=== PATIENT | female | born 1995 | race Asian ===

== ENCOUNTER 2021-04-02 20:57 | Emergency (ER) | payer OTHER, SELFPAY ==
[2021-04-02 21:09] VITALS: BP 134/61; PULSE 78; RESP 18; TEMP 36.6; O2SAT 97; BMI 29.2
[2021-04-02] MEDS: ONDANSETRON 4 MG ODT SL (21:16)
--- NOTE | 2021-04-02 22:15 | ED.NAVMDI ---
HPI - Nausea/Vomiting/Diarrhea General Chief complaint: Nausea/Vomiting/Diarrhea Stated complaint: NAUSEA HEADACHE HURTBURN 6 WKS Time Seen by Provider: 04/02/21 22:02 Source: patient Mode of arrival: Ambulatory History of Present Illness HPI Narrative: Patient is . Six weeks . Schedule to have 1st OB appointment. Is on vitamins. Complains of 1 week of nausea and vomiting and urinary frequency. Denies abdominal pain. No fever chills. No back or flank pain. Feels much better after Zofran ODT given here. Currently feeling much better. Related Data Previous Rx's Medication Instructions Recorded cephalexin 500 mg capsule 500 mg PO QID #20 cap 04/02/21 ondansetron 4 mg disintegrating 4 mg PO Q8H PRN #10 tab 04/02/21 tablet Allergies Allergy/AdvReac Type Severity Reaction Status Date / Time No Known Drug Allergies Allergy Verified 04/02/21 22:48 Review of Systems Review of Systems Narrative: GENERAL: Denies chills, fatigue, malaise, fever, sweats. HEENT: Denies sinus pain, ear pain, sore throat RESPIRATORY: Denies dyspnea, cough CARDIOVASCULAR: Denies chest pain, palpitations GASTROINTESTINAL: Complaint nausea, vomiting, denies abdominal pain : Denies dysuria, complains frequency, denies hematuria MUSCULOSKELETAL: denies muscle or bony pain SKIN: Denies rash, skin lesions NEUROLOGIC: Denies weakness, numbness ROS Unobtainable: All systems reviewed & are unremarkable except as noted in HPI and below Patient History Social History Smoking Status: Never smoker Smoking Status: Never smoker alcohol intake frequency: 0-2 drinks per day Substance Use Type: does not use Exam Narrative Exam Narrative: GENERAL: in no distress, not toxic not dyspneic HEAD: Normocephalic. EYES: Pupils equal round No scleral icterus. No injection no discharge ENT: Mucous membranes moist. NECK: Trachea midline. CARDIOVASCULAR: Regular rate and rhythm without murmurs RESPIRATORY: Clear to auscultation. Breath sounds equal bilaterally. No wheezes, rales, or rhonchi. GASTROINTESTINAL: Abdomen soft, non-tender, bowel sounds present no peritoneal signs EXTREMITIES: No gross deformities. BACK: No flank tenderness. No CVA tenderness NEURO: AOx4. SKIN: Warm and dry PSYCH: Not anxious, is cooperative Initial Vital Signs Initial Vital Signs: Vital Signs Temperature 97.8 F 04/02/21 21:09 Pulse Rate 78 04/02/21 21:09 Respiratory Rate 18 04/02/21 21:09 Blood Pressure 134/61 04/02/21 21:09 Pulse Oximetry 97 04/02/21 21:09 Course Course Course Narrative: Feeling much better after Zofran and IV fluids. Orders Ordered: ED Orders 04/02/21 22:00 Urine Culture Stat Urine Microscopic Stat 04/02/21 22:34 Complete Blood Count AUTO DIFF Stat Comprehensive Metabolic Panel Stat Discontinued Medications Cephalexin HCl (Cephalexin 250 Mg Capsule) 500 mg PO NOW ONE Stop: 04/02/21 22:16 Last Admin: 04/02/21 22:50 Dose: 500 mg Documented by: JANETTE Sodium Chloride (Normal Saline 0.9%) 1,000 mls @ 1,000 mls/hr IV BOLUS ONE Stop: 04/02/21 23:13 Last Infusion: 04/03/21 00:04 Dose: 0 mls/hr Documented by: Admin: 04/02/21 22:49 Dose: 1,000 mls/hr Documented by: JANETTE Ondansetron HCl (Ondansetron 4 Mg Odt) 4 mg SL NOW ONE Stop: 04/02/21 21:12 Last Admin: 04/02/21 21:16 Dose: 4 mg Documented by: SCOTT Ondansetron HCl (Ondansetron 4 Mg Odt Prepack) 1 bottle MISC SEEINSTR ONE Stop: 04/02/21 23:43 Last Admin: 04/02/21 23:53 Dose: 1 bottle Documented by: SCOTT Reevaluation(s) Reevaluation #1: Patient feeling much better. IV fluids completed. Zofran resolved the nausea and vomiting. Reviewed results with patient. Desires discharge home Time: 23:38 Vital Signs Vital signs: Vital Signs - 8 hr 04/02/21 21:09 04/03/21 00:05 Temperature 97.8 F Pulse Rate 78 76 Respiratory Rate 18 16 Blood Pressure 134/61 99/49 L Pulse Oximetry 97 99 MDM - Nausea/Vomiting/Diarrhea Differential Diagnosis Differential diagnosis: Likely dehydration and other (UTI/hyperemesis ) Lab Data Result diagrams: 04/02/21 22:34 08/22/21 22:34 Labs: Lab Results 04/02/21 04/02/21 04/02/21 Range/Units 22:00 22:34 22:34 WBC 9.9 (4.5-11.0) X10^3/uL RBC 4.39 (4.0-5.2) X10^6/uL Hgb 13.1 (12.0-16.0) g/dL Hct 38.8 (36-46) % MCV 88.3 (80-100) fL MCH 29.7 (26-34) PG MCHC 33.7 (30-36) % RDW 13.8 (11.6-14.8) % Plt Count 278 (150-400) X10^3/uL Neut % (Auto) 68.1 (50-75) % Lymph % (Auto) 21.2 L (25-40) % [place] % (Auto) 7.7 (3-14) % Eos % (Auto) 2.3 (2-4) % Baso % (Auto) 0.7 (0-2) % Neut # (Auto) 6800 (1218-7488) /uL Lymph # (Auto) 2100 (0942-6858) /uL [place] # (Auto) 800 (0-900) /uL Eos # (Auto) 200 (0-450) /uL Baso # (Auto) 100 (0-100) /uL Sodium 136 L (137-145) mmol/L Potassium 3.8 (3.4-5.1) mmol/L Chloride 105 (98-107) mmol/L Carbon Dioxide 25 (22-32) mmol/L BUN 7 (7-17) mg/dL Creatinine 0.71 (0.52-1.04) mg/dL Estimated GFR > 60.0 (>60) mL/min BUN/Creatinine Ratio 9.9 (6-22) Glucose 85 (70-100) mg/dL Calcium 9.1 (8.4-10.2) mg/dL Total Bilirubin 0.4 (0.2-1.3) mg/dL AST 30 (14-36) IU/L ALT 32 (<35) IU/L Alkaline Phosphatase 48 (38-126) U/L Total Protein 7.5 (6.3-8.2) g/dL Albumin 4.1 (3.5-5.0) g/dL Globulin 3.4 (1.7-4.1) g/dL Albumin/Globulin Ratio 1.2 (1.0-2.8) Urine RBC 0-1/hpf (0-5/HPF) Urine WBC 5-10/hpf H (0-5/HPF) Ur Squamous Epith Cells 1-5 /hpf (0-5/HPF) Ur Transition Epith Cell 1-5/hpf (0-5/HPF) Urine Bacteria Moderate (10-30) H (None) Hyaline Casts 1-5/lpf (None) Ur Culture Indicated? Culture not indicate Urine Dip Bedside Urine Glucose Negative Bedside Urine Bilirubin - Negative Bedside Urine Ketone - Negative Urine Specific [place] 1.010 Bedside Urine Occult Blood - Negative Bedside Urine pH 7 Bedside Urine Protein - Negative Bedside Urine Urobilinogen - Negative Bedside Urine Nitrite - Negative Bedside Urine Leukocytes + 70 Esterase MDM Narrative Medical decision making narrative: Appropriate for discharge home. Symptoms have resolved. Patient feels much better after IV fluids and Zofran. Return precautions reviewed with patient. No abdominal pain or complaints. Laboratory studies reassuring. As well as exam. Patient does have OBGYN appointment next week April 13 for appointment. She desires discharge home. Discharge Plan Departure Patient Disposition: Home Clinical Impression: Nausea and vomiting during , Acute UTI Instructions: DI for Dehydration -- Adult, DI for Urinary Tract Infection (UTI), Nausea and Vomiting-Adult Activity Restrictions/Additional Instructions: See your OBGYN doctor next week as scheduled. Keep well hydrated. Return if worse or any questions or concerns. Prescriptions: New cephalexin 500 mg capsule 500 mg PO QID Qty: 20 RF: 0 ondansetron 4 mg tablet,disintegrating 4 mg PO Q8H PRN (Reason: nausea and vomiting) Qty: 10 RF: 0
[2021-04-02 22:32] LABS: Bacteria Urine Moderate (10-30); Hyaline Casts Urine 1-5/LPF; RBC Urine 0-1/HPF (0-5/HPF); Squamous Epithelial Cell Urine 1-5 /HPF (0-5/HPF); Transitional Epi Cells Urine 1-5/HPF (0-5/HPF); WBC Urine 5-10/HPF (0-5/HPF)
[2021-04-02 22:40] LABS: Add Manual Diff / Slide Review NO; Basophils Absolute Auto 100 /uL (0-100); Basophils Percent Auto 0.7 % (0-2); Eosinophils Absolute Auto 200 /uL (0-450); Eosinophils Percent Auto 2.3 % (2-4); Hematocrit 38.8 % (36-46); Hemoglobin 13.1 g/dL (12.0-16.0); Lymphocytes Absolute Auto 2100 /uL (1100-4500); Lymphocytes Percent Auto 21.2 % (25-40); Mean Corpuscular HGB Conc 33.7 % (30-36); Mean Corpuscular Hemoglobin 29.7 PG (26-34); Mean Corpuscular Volume 88.3 fL (80-100); Monocytes Absolute Auto 800 /uL (0-900); Monocytes Percent Auto 7.7 % (3-14); Neutrophils Absolute Auto 6800 /uL (1500-7000); Neutrophils Percent Auto 68.1 % (50-75); Platelet Count 278 X10^3/uL (150-400); Red Blood Cell Count 4.39 X10^6/uL (4.0-5.2); Red Cell Distribution Width 13.8 % (11.6-14.8); White Blood Cell Count 9.9 X10^3/uL (4.5-11.0)
[2021-04-02] MEDS: SODIUM CHLORIDE 0.9% 1,000 ML 1000 ML IV (22:49)
[2021-04-02] MEDS: cephALEXin 250 MG CAPSULE 500 MG PO (22:50)
[2021-04-02 22:53] LABS: Alanine Aminotransferase 32 IU/L (<35); Albumin 4.1 g/dL (3.5-5.0); Albumin Globulin Ratio 1.2 (1.0-2.8); Alkaline Phosphatase 48 U/L (38-126); Aspartate Aminotransferase 30 IU/L (14-36); BUN Creatinine Ratio 9.9 (6-22); Bilirubin Total 0.4 mg/dL (0.2-1.3); Blood Urea Nitrogen 7 mg/dL (7-17); Calcium 9.1 mg/dL (8.4-10.2); Carbon Dioxide 25 mmol/L (22-32); Chloride 105 mmol/L (98-107); Estimated Glomerular Filt Rate > 60.0 mL/min (>60); Globulin 3.4 g/dL (1.7-4.1); Glucose 85 mg/dL (70-100); HEMOLYSIS < 15 (0-50); Potassium 3.8 mmol/L (3.4-5.1); Sodium 136 mmol/L (137-145); Total Protein 7.5 g/dL (6.3-8.2)
[2021-04-02] MEDS: ONDANSETRON 4 MG ODT PREPACK 1 BOTTLE MISC (23:53)
[2021-04-03 00:05] VITALS: BP 99/49; PULSE 76; RESP 16; O2SAT 99
== END 2021-04-02 23:57 | disposition home or self-care (01) ==
PROVIDERS: Emergency Provider Emergency Medicine
DX: O21.9 Vomiting of pregnancy, unspecified (principal); N39.0 Urinary tract infection, site not specified; Z3A.01 Less than 8 weeks gestation of pregnancy
CPT/HCPCS: 36415; 80053; 81003; 81015; 85025; 87077; 87086; 87186; 96360; 99284

== ENCOUNTER 2021-04-06 01:06 | Emergency (ER) | payer OTHER, SELFPAY ==
[2021-04-06] VITALS (7 sets, daily range): BP systolic 93–108; BP diastolic 52–57; PULSE 57–75; RESP 15; TEMP 36.8; O2SAT 94–100; BMI 28.3
--- NOTE | 2021-04-06 01:34 | DI.US.S_ITS ---
PROCEDURE: US OB <= 14 WEEKS FETUS INDICATIONS: PAIN OUTSIDE/PRIOR DATING DATA: Last menstrual period (LMP): February 15, 2021 LMP-based estimated date of delivery (ERICK): November 22, 2021 First dating scan (date and location): April 06, 2021 Estimated date of delivery (ERICK) from first dating scan: November 23, 2021 TECHNIQUE: Real-time scanning was performed of the fetus and maternal pelvic organs, with image documentation. Endovaginal scanning was also performed to better visualize the fetus and maternal ovaries. COMPARISON: None. FINDINGS: Embryo: Single living intra identified. Yolk sac and pole are identified. [place]-rump length measures 0.9 centimeters corresponding to ultrasound estimated gestational age of 7 weeks 0 days. Heart rate: 124 beats per minute Measurement variability in dating: +/- 4 weeks by LMP, +/- 7 days by mean sac diameter (use before 6 weeks gestation if crown-rump length not able to be measured), +/- 5 days by crown-rump length (up to 8 weeks 6 days gestation), +/- 7 days by crown-rump length (up to 13 weeks 6 days gestation). Maternal organs: Left corpus luteal cyst. 1.0 x 0.6 x 1.5 centimeter echogenic focus noted in the maternal cervical canal. Lesion does not have internal vascularity may represent a small clot. IMPRESSION: Single living intrauterine with ultrasound estimated gestational age of 7 weeks 0 days corresponding to ultrasound ERICK of November 23, 2021. Dictated by: Lizz Alvarez MD, PhD on 04/06/2021 at 8:14 Approved by: Lizz Alvarez MD, PhD on 04/06/2021 at 8:16
--- NOTE | 2021-04-06 01:34 | ED_ITS ---
HPI - Abdominal Pain General Chief Complaint: Abdominal Pain Stated Complaint: nausea vomiting stomach hurts bad Time Seen by Provider: 04/06/21 01:13 Source: patient Mode of arrival: Ambulatory Limitations: no limitations History of Present Illness HPI narrative: Patient is a 25-year-old female 7 weeks presenting with abdominal cramping and nausea. She 54 year pain and vomiting. She was seen evaluated here on 04/02/2021 diagnosed with UTI put on Keflex. She said those symptoms have improved. However pain and vomiting tonight got worse. She denies any fever. No vaginal bleeding. She has been taking Zofran at home for the nausea. She has an appointment with OBGYN but has yet to be evaluated. No prior ultrasound was done. Related Data Previous Rx's Medication Instructions Recorded cephalexin 500 mg capsule 500 mg PO QID #20 cap 04/02/21 ondansetron 4 mg disintegrating 4 mg PO Q8H PRN #10 tab 04/02/21 tablet Allergies Allergy/AdvReac Type Severity Reaction Status Date / Time No Known Drug Allergies Allergy Verified 04/02/21 22:48 Review of Systems Review of Systems Narrative: GENERAL: Denies chills, fatigue, malaise, fever, sweats, travel HEENT: Denies sinus pain, ear pain, sore throat, difficulty swallowing, neck pain RESPIRATORY: Denies dyspnea, cough, wheezing, hemoptysis, sputum. CARDIOVASCULAR: Denies chest pain, palpitations, orthopnea, edema GASTROINTESTINAL: See HPI : Denies dysuria, frequency, incontinence, hematuria, urinary retention, flank pain. MUSCULOSKELETAL: Denies weakness, joint pain, or bony pain SKIN: No rash, no erythema, no pruritus NEUROLOGIC: Denies weakness, dizziness, headache, numbness, change in speech, confusion PSYCHIATRIC: No concerning psychosocial issues. 12 point review of systems is negative except for those stated above and HPI Patient History Social History Smoking Status: Never smoker Smoking Status: Never smoker alcohol intake frequency: 0-2 drinks per day Substance Use Type: does not use Exam Initial Vital Signs Initial Vital Signs: Vital Signs Temperature 98.2 F 04/06/21 01:19 Pulse Rate 57 L 04/06/21 01:19 Respiratory Rate 15 04/06/21 01:19 Blood Pressure 108/57 L 04/06/21 01:19 Pulse Oximetry 99 04/06/21 01:19 GENERAL: 25-year-old female appears to not feel well HEENT: Head atraumatic,EOMI, pupils reactive, face symmetric, moist mucous membranes CARDIOVASCULAR: Regular rate and rhythm without murmurs, rubs or gallops. RESPIRATORY: Breath sounds equal bilaterally, no wheezes rales or rhonchi. ABDOMEN: Soft, mild lower abdominal pain no localization no guarding or rebound EXTREMITIES: Normal range of motion, no clubbing or edema. Neurovascularly intact NEUROLOGICAL: Alert and oriented x4.Normal gait and speech. SKIN: Warm, dry, no laceration, no petechiae, no rashes or lesions. Course Orders Ordered: ED Orders 04/06/21 01:26 Complete Blood Count AUTO DIFF Stat Comprehensive Metabolic Panel Stat HCG Quantitative /Beta subunit Stat Lipase Stat 04/06/21 01:34 US OB <= 14 weeks fetus Stat 04/06/21 01:35 Ictotest Urine Stat Urine Culture Stat Urine Microscopic Stat Discontinued Medications Acetaminophen (Acetaminophen 325 Mg Tablet) 975 mg PO NOW ONE Stop: 04/06/21 01:45 Last Admin: 04/06/21 01:46 Dose: 975 mg Documented by: EUGENIA Sodium Chloride (Normal Saline 0.9%) 1,000 mls @ 1,000 mls/hr IV BOLUS ONE Stop: 04/06/21 02:37 Last Infusion: 04/06/21 02:53 Dose: 0 mls/hr Documented by: Admin: 04/06/21 01:42 Dose: 1,000 mls/hr Documented by: EUGENIA Ondansetron HCl (Ondansetron 4 Mg/2 Ml Inj) 4 mg IV NOW ONE Stop: 04/06/21 01:39 Last Admin: 04/06/21 01:41 Dose: 4 mg Documented by: EUGENIA Vital Signs Vital signs: Vital Signs - 8 hr 04/06/21 01:19 04/06/21 02:55 04/06/21 02:57 Temperature 98.2 F Pulse Rate 57 L 64 70 Respiratory Rate 15 Blood Pressure 108/57 L 105/57 L Pulse Oximetry 99 94 100 04/06/21 03:00 04/06/21 03:30 04/06/21 04:00 Temperature Pulse Rate Respiratory Rate Blood Pressure 103/55 L 94/55 L 93/52 L Pulse Oximetry 04/06/21 04:04 Temperature Pulse Rate 75 Respiratory Rate Blood Pressure Pulse Oximetry 99 MDM - Abdominal Pain Lab Data Result diagrams: 04/06/21 01:04/06/21 01: Labs: Lab Results 04/06/21 04/06/21 04/06/21 Range/Units 01: 01: 01:26 WBC 14.5 H (4.5-11.0) X10^3/uL RBC 4.39 (4.0-5.2) X10^6/uL Hgb 12.8 (12.0-16.0) g/dL Hct 38.6 (36-46) % MCV 88.1 (80-100) fL MCH 29.2 (26-34) PG MCHC 33.1 (30-36) % RDW 13.8 (11.6-14.8) % Plt Count 299 (150-400) X10^3/uL Neut % (Auto) 73.6 (50-75) % Lymph % (Auto) 19.1 L (25-40) % [place] % (Auto) 4.8 (3-14) % Eos % (Auto) 1.9 L (2-4) % Baso % (Auto) 0.6 (0-2) % Neut # (Auto) 89256 H (2444-2788) /uL Lymph # (Auto) 2800 (4074-6054) /uL [place] # (Auto) 700 (0-900) /uL Eos # (Auto) 300 (0-450) /uL Baso # (Auto) 100 (0-100) /uL Sodium 136 L (137-145) mmol/L Potassium 3.4 (3.4-5.1) mmol/L Chloride 102 (98-107) mmol/L Carbon Dioxide 25 (22-32) mmol/L BUN 16 (7-17) mg/dL Creatinine 0.98 (0.52-1.04) mg/dL Estimated GFR > 60.0 (>60) mL/min BUN/Creatinine Ratio 16.3 (6-22) Glucose 112 H (70-100) mg/dL Calcium 9.9 (8.4-10.2) mg/dL Total Bilirubin 0.3 (0.2-1.3) mg/dL AST 30 (14-36) IU/L ALT 32 (<35) IU/L Alkaline Phosphatase 56 (38-126) U/L Total Protein 7.7 (6.3-8.2) g/dL Albumin 4.2 (3.5-5.0) g/dL Globulin 3.5 (1.7-4.1) g/dL Albumin/Globulin Ratio 1.2 (1.0-2.8) Lipase 75 (23-300) U/L HCG, Quant 50959 mIU/mL Ur Bilirubin Confirm (Negative) Urine RBC (0-5/HPF) Urine WBC (0-5/HPF) Ur Squamous Epith Cells (0-5/HPF) Urine Bacteria (None) Urine Mucus (Negative) Ur Culture Indicated? Micro UA Comment 04/06/21 04/06/21 Range/Units 01:35 01:35 WBC (4.5-11.0) X10^3/uL RBC (4.0-5.2) X10^6/uL Hgb (12.0-16.0) g/dL Hct (36-46) % MCV (80-100) fL MCH (26-34) PG MCHC (30-36) % RDW (11.6-14.8) % Plt Count (150-400) X10^3/uL Neut % (Auto) (50-75) % Lymph % (Auto) (25-40) % [place] % (Auto) (3-14) % Eos % (Auto) (2-4) % Baso % (Auto) (0-2) % Neut # (Auto) (7309-0256) /uL Lymph # (Auto) (8970-2716) /uL [place] # (Auto) (0-900) /uL Eos # (Auto) (0-450) /uL Baso # (Auto) (0-100) /uL Sodium (137-145) mmol/L Potassium (3.4-5.1) mmol/L Chloride (98-107) mmol/L Carbon Dioxide (22-32) mmol/L BUN (7-17) mg/dL Creatinine (0.52-1.04) mg/dL Estimated GFR (>60) mL/min BUN/Creatinine Ratio (6-22) Glucose (70-100) mg/dL Calcium (8.4-10.2) mg/dL Total Bilirubin (0.2-1.3) mg/dL AST (14-36) IU/L ALT (<35) IU/L Alkaline Phosphatase (38-126) U/L Total Protein (6.3-8.2) g/dL Albumin (3.5-5.0) g/dL Globulin (1.7-4.1) g/dL Albumin/Globulin Ratio (1.0-2.8) Lipase (23-300) U/L HCG, Quant mIU/mL Ur Bilirubin Confirm Negative (Negative) Urine RBC None seen (0-5/HPF) Urine WBC 0-1/hpf (0-5/HPF) Ur Squamous Epith Cells 0-1 /hpf (0-5/HPF) Urine Bacteria None seen (None) Urine Mucus 1+ H (Negative) Ur Culture Indicated? Culture not indicate Micro UA Comment Point of care testing: Urine Dip Bedside Urine Glucose Negative Bedside Urine Bilirubin + 1 Bedside Urine Ketone - Negative Urine Specific [place] 1.030 Bedside Urine Occult Blood - Negative Bedside Urine pH 6.0 Bedside Urine Protein + 30 Bedside Urine Urobilinogen - Negative Bedside Urine Nitrite - Negative Bedside Urine Leukocytes - Negative Esterase Imaging Data US - OB: Radiologist's Impression: Preliminary report live intrauterine gestation with estimated age is 7 weeks 0 days heart rate 124 MDM Narrative Medical decision making narrative: Patient is tolerating fluid. She was previously on Keflex for UTI seems to be doing better. She has no vaginal bleeding but intense cramping. Recommended repeat HCG in 2 days and to call her OB. Discharge Plan Departure Patient Disposition: Home Clinical Impression: Nausea and vomiting during Instructions: Hyperemesis Gravidarum Activity Restrictions/Additional Instructions: *You have been diagnosed with in with vomiting *What to do: At this time blood work is overall reassuring baby looks healthy. Increase the fluid intake as tolerated. You may take prunes [id number] docusate, to help with constipation. You should have HCG re- checked in 2 days, (HCG=93,365) *Continue to take medications as directed B6 daily for nausea *Follow up with your primary care provider in 2-3 days *Return to ER if you should have increasing abdominal pain, vaginal bleeding, persistent vomiting or any new, worsening or concerning symptoms Prescriptions: No Action cephalexin 500 mg capsule 500 mg PO QID Qty: 20 RF: 0 ondansetron 4 mg tablet,disintegrating 4 mg PO Q8H PRN (Reason: nausea and vomiting) Qty: 10 RF: 0 Referrals: Rosie Rudolph MD [Physician] -
[2021-04-06] MEDS: ONDANSETRON 4 MG/2 ML INJ IV (01:41)
[2021-04-06] MEDS: SODIUM CHLORIDE 0.9% 1,000 ML 1000 ML IV (01:42)
[2021-04-06] MEDS: ACETAMINOPHEN 325 MG TABLET 975 MG PO (01:46)
[2021-04-06 02:07] LABS: Add Manual Diff / Slide Review NO; Basophils Absolute Auto 100 /uL (0-100); Basophils Percent Auto 0.6 % (0-2); Eosinophils Absolute Auto 300 /uL (0-450); Eosinophils Percent Auto 1.9 % (2-4); Hematocrit 38.6 % (36-46); Hemoglobin 12.8 g/dL (12.0-16.0); Lymphocytes Absolute Auto 2800 /uL (1100-4500); Lymphocytes Percent Auto 19.1 % (25-40); Mean Corpuscular HGB Conc 33.1 % (30-36); Mean Corpuscular Hemoglobin 29.2 PG (26-34); Mean Corpuscular Volume 88.1 fL (80-100); Monocytes Absolute Auto 700 /uL (0-900); Monocytes Percent Auto 4.8 % (3-14); Neutrophils Absolute Auto 10700 /uL (1500-7000); Neutrophils Percent Auto 73.6 % (50-75); Platelet Count 299 X10^3/uL (150-400); Red Blood Cell Count 4.39 X10^6/uL (4.0-5.2); Red Cell Distribution Width 13.8 % (11.6-14.8); White Blood Cell Count 14.5 X10^3/uL (4.5-11.0)
[2021-04-06 02:09] LABS: Alanine Aminotransferase 32 IU/L (<35); Albumin 4.2 g/dL (3.5-5.0); Albumin Globulin Ratio 1.2 (1.0-2.8); Alkaline Phosphatase 56 U/L (38-126); Aspartate Aminotransferase 30 IU/L (14-36); BUN Creatinine Ratio 16.3 (6-22); Bilirubin Total 0.3 mg/dL (0.2-1.3); Blood Urea Nitrogen 16 mg/dL (7-17); Calcium 9.9 mg/dL (8.4-10.2); Carbon Dioxide 25 mmol/L (22-32); Chloride 102 mmol/L (98-107); Estimated Glomerular Filt Rate > 60.0 mL/min (>60); Globulin 3.5 g/dL (1.7-4.1); Glucose 112 mg/dL (70-100); HEMOLYSIS < 15 (0-50); Lipase 75 U/L (23-300); Potassium 3.4 mmol/L (3.4-5.1); Sodium 136 mmol/L (137-145); Total Protein 7.7 g/dL (6.3-8.2)
[2021-04-06 02:25] LABS: Ictotest Urine Negative (Negative)
[2021-04-06 02:41] LABS: Bacteria Urine None Seen; RBC Urine None Seen (0-5/HPF)
[2021-04-06 02:42] LABS: Mucus Urine 1+ (Negative); Squamous Epithelial Cell Urine 0-1 /HPF (0-5/HPF); WBC Urine 0-1/HPF (0-5/HPF)
[2021-04-06 03:36] LABS: HCG Quantitative /Beta subunit 93365 mIU/mL
== END 2021-04-06 04:10 | disposition home or self-care (01) ==
PROVIDERS: Emergency Provider Emergency Medicine
DX: O21.9 Vomiting of pregnancy, unspecified (principal); Z3A.01 Less than 8 weeks gestation of pregnancy
CPT/HCPCS: 36415; 76801; 76817; 80053; 81003; 81015; 83690; 84702; 85025; 87086; 96361; 96374; 99284; J2405

== ENCOUNTER → 2021-04-13 10:35 | Outpatient (CLI) | payer OTHER, SELFPAY ==
[2021-04-13 11:55] LABS: Add Manual Diff / Slide Review NO; Basophils Absolute Auto 100 /uL (0-100); Basophils Percent Auto 0.8 % (0-2); Eosinophils Absolute Auto 200 /uL (0-450); Eosinophils Percent Auto 2.5 % (2-4); Hematocrit 38.7 % (36-46); Hemoglobin 12.8 g/dL (12.0-16.0); Lymphocytes Absolute Auto 1600 /uL (1100-4500); Lymphocytes Percent Auto 17.4 % (25-40); Mean Corpuscular HGB Conc 33.2 % (30-36); Mean Corpuscular Hemoglobin 29.5 PG (26-34); Mean Corpuscular Volume 88.9 fL (80-100); Monocytes Absolute Auto 500 /uL (0-900); Monocytes Percent Auto 5.1 % (3-14); Neutrophils Absolute Auto 6700 /uL (1500-7000); Neutrophils Percent Auto 74.2 % (50-75); Platelet Count 281 X10^3/uL (150-400); Red Blood Cell Count 4.35 X10^6/uL (4.0-5.2); Red Cell Distribution Width 14.4 % (11.6-14.8); White Blood Cell Count 9.1 X10^3/uL (4.5-11.0)
[2021-04-13 12:41] LABS: Hepatitis B Surface Antigen NEGATIVE s/c (NEGATIVE)
[2021-04-13 12:58] LABS: HIV 1 & 2 Ab/Ag 4th Gen Combo NEGATIVE (NEGATIVE); Hep C Virus Ab w/Reflex Quant NEGATIVE s/c (NEGATIVE)
[2021-04-13 15:57] LABS: Urine N gonorrhoeae NOT DETECTED
[2021-04-13 16:33] LABS: Urine Chlamydia NOT DETECTED
[2021-04-14 09:31] LABS: RPR Screen Non Reactive (Non Reactive); Varicella IgG Antibody <135 index (Immune >165)
== END ==
PROVIDERS: Referring Provider Specialist; Visit Provider Specialist
DX: Z34.01 Encounter for supervision of normal first pregnancy, first trimester (principal); Z3A.08 8 weeks gestation of pregnancy
CPT/HCPCS: 36415; 80055; 86787; 86803; 86850; 86900; 86901; 87389; 87491; 87591

== ENCOUNTER → 2021-04-18 09:01 | Outpatient (CLI) | payer OTHER, SELFPAY ==
[2021-04-18 10:03] LABS: Appearance Urine UA SL CLOUDY; Bilirubin Urine UA NEGATIVE (NEGATIVE); Color Urine UA YELLOW; Glucose Urine UA NEGATIVE (Negative); Ketones Urine UA NEGATIVE (NEGATIVE); Leukocyte Esterase Urine UA 1+ (NEGATIVE); Nitrite Urine UA NEGATIVE (Negative); Occult Blood Urine UA NEGATIVE (Negative); Protein Urine UA NEGATIVE (Negative); Specific Gravity Urine UA 1.015 (1.000-1.035); Urobilinogen Urine UA 0.2 E.U./dL (0.2)
[2021-04-18 10:04] LABS: pH Urine UA 6.5 (4.5-8.0)
[2021-04-18 10:05] LABS: RBC Urine None Seen (0-5/HPF)
[2021-04-18 10:10] LABS: Amorphous Sediment Urine 1+; Bacteria Urine Many (>30); Squamous Epithelial Cell Urine 5-10 /HPF (0-5/HPF); WBC Urine 1-5/HPF (0-5/HPF)
== END ==
PROVIDERS: Referring Provider Specialist; Visit Provider Specialist
DX: Z34.01 Encounter for supervision of normal first pregnancy, first trimester (principal)
CPT/HCPCS: 81003; 81015; 87077; 87086; 87186

== ENCOUNTER 2021-05-18 23:42 | Emergency (ER) | payer OTHER, SELFPAY ==
[2021-05-18 23:50] VITALS: BP 110/64; PULSE 76; RESP 18; TEMP 36.8; O2SAT 99; BMI 31.1
[2021-05-18 23:52] VITALS: BP 110/64; PULSE 67; RESP 17; O2SAT 99
--- NOTE | 2021-05-19 00:04 | ED.HA ---
HPI - Headache General Chief Complaint: Headache Stated Complaint: severe headache, throwing up Time Seen by Provider: 05/18/21 23:50 Mode of arrival: Ambulatory History of Present Illness HPI Narrative: 25-year-old female nonsmoker without chronic medical problems presents with her in the chief complaint of an increasingly severe headache over the course of the day. She states that it is generalized and squeezing, worse with bright lights and loud noise. She denies any neck pain, trauma nor fever or chills. She states it is quite severe and she has developed nausea and vomiting. She denies focal neurologic problems such as blurred vision, numbness, tingling or weakness of her extremities. She is a at 13 weeks and has had no issues with her thus far. She denies any abdominal pain Related Data Home Medications Medication Instructions Recorded Confirmed prenat.vits,kedar,[id number] 1 tab PO DAILY 04/12/21 04/13/21 sertraline 25 mg tablet (Zoloft) 25 mg PO DAILY 04/12/21 04/13/21 Previous Rx's Medication Instructions Recorded cephalexin 500 mg capsule 500 mg PO QID #20 cap 04/02/21 ondansetron 4 mg disintegrating 4 mg PO Q8H PRN #10 tab 04/02/21 tablet Allergies Allergy/AdvReac Type Severity Reaction Status Date / Time lactose Allergy Severe GI upset & Verified 05/11/21 07:53 diarrhea shellfish derived Allergy Mild Hives Verified 05/11/21 07:53 Review of Systems Review of Systems Narrative: GENERAL: Denies chills, fatigue, malaise, fever, sweats. HEENT: Denies sinus pain, ear pain, sore throat, difficulty swallowing, dizziness. RESPIRATORY: Denies dyspnea, cough, wheezing, hemoptysis, sputum. CARDIOVASCULAR: Denies chest pain, palpitations, orthopnea, edema, GASTROINTESTINAL: See HPI : Denies dysuria, frequency, incontinence, hematuria, urinary retention. MUSCULOSKELETAL: denies weakness, joint pain, or bony pain SKIN: Denies rash, skin lesions, or other NEUROLOGIC: See HPI PSYCHIATRIC: No concerning psychosocial issues. 12 point review of systems is negative except for those stated above Patient History Medical History Acne (~2010) ADHD (~2019) Asthma (~1999) Encounter for IUD removal (~02/2021) Lactose intolerance (~1996) Surgical History [place] teeth extracted (~2017) Family History Father Hypertension Hyperlipidemia Asthma Grandfather Hypertension History of heart disease Grandmother Hyperlipidemia Hypertension Grandfather History of heart disease Hypertension Asthma Glaucoma Pacemaker Grandmother Dementia Mother Acute ITP Social History marital status: number of children: 0 household members: spouse lives independently: Yes caregiver/support person: No housing: apartment pets and animals: Yes (3 cats: safe & aware.) education level: college (Some college. 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 ) daily servings fruits/ve-1 caffeine: Yes (1 cup coffee daily.) Type(s) of exercise: walking (Some hiking. ) and swimming (Every morning. ) frequency: daily duration: 30-45 minutes/day Smoking Status: Former smoker alcohol intake frequency: 0-2 drinks per day Substance Use Type: does not use Exam Narrative Exam Narrative: GENERAL: [25 year old patient appears stated age. Well-developed patient, in mild distress. Uncomfortable, sitting in a dark room with a towel covering her eyes HEAD: Atraumatic. Normocephalic. EYES: Pupils equal round and reactive. Extraocular motions intact. No scleral icterus. No injection or drainage. ENT: Nose without bleeding, purulent drainage. Throat without erythema, tonsillar hypertrophy or exudate. Airway patent. NECK: Trachea midline. Non tender, no meningeal sign CARDIOVASCULAR: Regular rate and rhythm without murmurs, gallops, or rubs. RESPIRATORY: Clear to auscultation. Breath sounds equal bilaterally. No wheezes, rales, or rhonchi. GASTROINTESTINAL: Abdomen soft, non-tender, nondistended. EXTREMITIES: No edema or joint tenderness. BACK: Nontender without deformity or crepitance. No flank tenderness. NEURO: AOx3. SKIN: No rash or erythema of visible areas Initial Vital Signs Initial Vital Signs: Vital Signs Temperature 98.3 F 05/18/21 23:50 Pulse Rate 76 05/18/21 23:50 Respiratory Rate 18 05/18/21 23:50 Blood Pressure 110/64 05/18/21 23:50 Pulse Oximetry 99 05/18/21 23:50 Course Orders Ordered: ED Orders 05/19/21 00:23 Complete Blood Count AUTO DIFF Stat Comprehensive Metabolic Panel Stat Discontinued Medications Acetaminophen (Acetaminophen 325 Mg Tablet) 650 mg PO NOW ONE Stop: 05/19/21 01:21 Last Admin: 05/19/21 01:25 Dose: 650 mg Documented by: EUGENIA Sodium Chloride (Normal Saline 0.9%) 1,000 mls @ 1,000 mls/hr IV BOLUS ONE Stop: 05/19/21 01:02 Last Admin: 05/19/21 00:28 Dose: 1,000 mls/hr Documented by: EUGENIA Metoclopramide HCl (Metoclopramide 10 Mg/2 Ml Inj) 10 mg IV NOW ONE Stop: 05/19/21 00:04 Last Admin: 05/19/21 00:28 Dose: 10 mg Documented by: EUGENIA Reevaluation(s) Reevaluation #1: Patient has had a significant although not complete resolution of pain after above-stated medications. She no longer has any nausea whatsoever. Her neurologic exam is very reassuring Vital Signs Vital signs: Vital Signs - 8 hr 05/18/21 23:50 05/18/21 23:52 Temperature 98.3 F Pulse Rate 76 67 Respiratory Rate 18 17 Blood Pressure 110/64 110/64 Pulse Oximetry 99 99 MDM - Headache Lab Data Result diagrams: 05/19/21 00:23 05/19/21 00:23 Labs: Lab Results 05/19/21 05/19/21 Range/Units 00:23 00:23 WBC 11.3 H (4.5-11.0) X10^3/uL RBC 4.21 (4.0-5.2) X10^6/uL Hgb 12.6 (12.0-16.0) g/dL Hct 37.6 (36-46) % MCV 89.3 (80-100) fL MCH 29.8 (26-34) PG MCHC 33.4 (30-36) % RDW 14.4 (11.6-14.8) % Plt Count 266 (150-400) X10^3/uL Neut % (Auto) 77.0 H (50-75) % Lymph % (Auto) 14.5 L (25-40) % [place] % (Auto) 5.9 (3-14) % Eos % (Auto) 2.2 (2-4) % Baso % (Auto) 0.4 (0-2) % Neut # (Auto) 8700 H (1296-0218) /uL Lymph # (Auto) 1600 (9314-6379) /uL [place] # (Auto) 700 (0-900) /uL Eos # (Auto) 300 (0-450) /uL Baso # (Auto) 0 (0-100) /uL Sodium 137 (137-145) mmol/L Potassium 3.5 (3.4-5.1) mmol/L Chloride 103 (98-107) mmol/L Carbon Dioxide 25 (22-32) mmol/L BUN 7 (7-17) mg/dL Creatinine 0.63 (0.52-1.04) mg/dL Estimated GFR > 60.0 (>60) mL/min BUN/Creatinine Ratio 11.1 (6-22) Glucose 82 (70-100) mg/dL Calcium 9.4 (8.4-10.2) mg/dL Total Bilirubin 0.4 (0.2-1.3) mg/dL AST 26 (14-36) IU/L ALT 19 (<35) IU/L Alkaline Phosphatase 55 (38-126) U/L Total Protein 7.9 (6.3-8.2) g/dL Albumin 4.3 (3.5-5.0) g/dL Globulin 3.6 (1.7-4.1) g/dL Albumin/Globulin Ratio 1.2 (1.0-2.8) MDM Narrative Medical decision making narrative: Headache considerations include, but not limited to: Subarachnoid hemorrhage, but unlikely as patient denies sudden onset of pain, not worst of life, or neck pain Meningitis considered, but thought unlikely given lack of Brudzinski's, Kernig's sign, altered mental status or fever Cavernous sinus thrombosis considered, but thought unlikely given exam, tremendous improvement with above therapies HTN Emergency considered, but thought unlikely given normal vitals Other serious diagnoses considered unlikely given lack of red flag findings such as sudden onset, increasing frequency, immunocompromise, systemic signs (fever, chills, stiff neck, or rash), focal neurologic findings, trauma, blood thinners, etc. Discharge Plan Departure Patient Disposition: Home Clinical Impression: Headache Qualifiers: Headache type: unspecified Headache chronicity pattern: acute headache Intractability: not intractable Qualified Code(s): R51.9 - Headache, unspecified Activity Restrictions/Additional Instructions: *You have been diagnosed with [ Headache ]Your physical exam and response to therapies as well as vital signs are very reassuring. *What to do: *Take medications as directed *Follow up with your primary care provider in 2-3 days, call for an appointment. Let them know you were seen in the Emergency Department and that we ask that you be seen in follow up *Return to ER if you should have any new, worsening or concerning symptoms, such as [ fever > 101F, neck pain or stiffness, vomiting, confusion, seizure, focal weakness, vision change, speech deficit or other concerning symptoms ] Prescriptions: No Action prenat.vits,kdear,[id number] Tablet 1 tab PO DAILY RF: 0 sertraline [Zoloft] 25 mg tablet 25 mg PO DAILY RF: 0 cephalexin 500 mg capsule 500 mg PO QID Qty: 20 RF: 0 ondansetron 4 mg tablet,disintegrating 4 mg PO Q8H PRN (Reason: nausea and vomiting) Qty: 10 RF: 0
[2021-05-19] MEDS: SODIUM CHLORIDE 0.9% 1,000 ML 1000 ML IV (00:28)
[2021-05-19] MEDS: METOCLOPRAMIDE 10 MG/2 ML INJ IV (00:28)
[2021-05-19 00:36] LABS: Add Manual Diff / Slide Review NO; Basophils Absolute Auto 0 /uL (0-100); Basophils Percent Auto 0.4 % (0-2); Eosinophils Absolute Auto 300 /uL (0-450); Eosinophils Percent Auto 2.2 % (2-4); Hematocrit 37.6 % (36-46); Hemoglobin 12.6 g/dL (12.0-16.0); Lymphocytes Absolute Auto 1600 /uL (1100-4500); Lymphocytes Percent Auto 14.5 % (25-40); Mean Corpuscular HGB Conc 33.4 % (30-36); Mean Corpuscular Hemoglobin 29.8 PG (26-34); Mean Corpuscular Volume 89.3 fL (80-100); Monocytes Absolute Auto 700 /uL (0-900); Monocytes Percent Auto 5.9 % (3-14); Neutrophils Absolute Auto 8700 /uL (1500-7000); Platelet Count 266 X10^3/uL (150-400); Red Blood Cell Count 4.21 X10^6/uL (4.0-5.2); Red Cell Distribution Width 14.4 % (11.6-14.8); White Blood Cell Count 11.3 X10^3/uL (4.5-11.0)
[2021-05-19 00:55] LABS: Potassium 3.5 mmol/L (3.4-5.1); Sodium 137 mmol/L (137-145)
[2021-05-19 00:56] LABS: Alanine Aminotransferase 19 IU/L (<35); Albumin 4.3 g/dL (3.5-5.0); Albumin Globulin Ratio 1.2 (1.0-2.8); Alkaline Phosphatase 55 U/L (38-126); Aspartate Aminotransferase 26 IU/L (14-36); BUN Creatinine Ratio 11.1 (6-22); Bilirubin Total 0.4 mg/dL (0.2-1.3); Blood Urea Nitrogen 7 mg/dL (7-17); Calcium 9.4 mg/dL (8.4-10.2); Carbon Dioxide 25 mmol/L (22-32); Chloride 103 mmol/L (98-107); Estimated Glomerular Filt Rate > 60.0 mL/min (>60); Globulin 3.6 g/dL (1.7-4.1); Glucose 82 mg/dL (70-100); Total Protein 7.9 g/dL (6.3-8.2)
[2021-05-19] MEDS: ACETAMINOPHEN 325 MG TABLET 650 MG PO (01:25)
[2021-05-19] MEDS: ONDANSETRON 4 MG ODT PREPACK 1 BOTTLE MISC (03:46)
[2021-05-19 03:49] VITALS: BP 113/57; PULSE 76; RESP 18; O2SAT 98
== END 2021-05-19 03:50 | disposition home or self-care (01) ==
PROVIDERS: Emergency Provider Emergency Medicine
DX: R51.9 Headache, unspecified (principal); R11.2 Nausea with vomiting, unspecified
CPT/HCPCS: 36415; 80053; 85025; 96361; 96374; 99284; J2765

== ENCOUNTER → 2021-05-19 15:25 | Outpatient (CLI) | payer OTHER, SELFPAY | PROVIDERS: Visit Provider Specialist | DX: Z34.81 Encounter for supervision of other normal pregnancy, first trimester (principal); R31.9 Hematuria, unspecified; R82.4 Acetonuria; Z3A.13 13 weeks gestation of pregnancy | CPT/HCPCS: 87077; 87086; 87186 ==

== ENCOUNTER → 2021-06-21 10:07 | Outpatient (CLI) | payer OTHER, SELFPAY ==
[2021-06-24 01:14] LABS: AFP, Serum 51.5 ng/mL (.); Calc Gestational Age Ultrasound (.); Estriol, Free 4.98 ng/mL (.); Inhibin A, MoM 1.11 (.); Maternal Ethnicity Other (.); Maternal Weight 169 lbs (.); Number of Fetuses No (.); OSBR Risk 1 IN 5411 (.); Results Report (.); Test Results *Screen Negative* (.); hCG, MoM 1.28 (.); hCG, Serum 34551 mIU/mL (.)
== END ==
PROVIDERS: Referring Provider Specialist; Visit Provider Specialist
DX: Z34.02 Encounter for supervision of normal first pregnancy, second trimester (principal); Z3A.18 18 weeks gestation of pregnancy
CPT/HCPCS: 36415; 82105; 82677; 84702; 86336; 87077; 87086; 87186

== ENCOUNTER → 2021-07-26 09:46 | Outpatient (CLI) | payer OTHER, SELFPAY ==
--- NOTE | 2021-07-26 09:48 | DI.US.S_ITS ---
PROCEDURE: US OB >= 14 WEEKS FETUS INDICATIONS: ANATOMY OUTSIDE/PRIOR DATING DATA: First dating scan (date and location): 04/13/2021. Estimated date of delivery (ERICK) from first dating scan: 11/18/2021. The calculations are made using the ultrasound ERICK of 11/18/2021. TECHNIQUE: Real-time scanning was performed of the fetus, with image documentation and biometric measurements. COMPARISON: [facility], US, US OB >= 14 WEEKS FETUS, 06/21/2021, 9:56. FINDINGS: General: A single living intrauterine gestation is present. Presentation: Breech. Placenta: Placental position is anterior , without previa. Amniotic fluid index: 9.5 cm, normal range is 5-24 cm. heart rate: 144 beats per minute. Maternal cervical canal: 3.8 cm long. Normal lower limit is 2.5 cm. biometrics: Biparietal diameter: 22 weeks 5 days Head circumference: 22 weeks 2 days Abdominal circumference: 22 weeks 3 days Femur length: 22 weeks 4 days Clinically estimated gestational age: 23 weeks 4 days Composite gestational age from present scan: 22 weeks 4 days Estimated weight and percentile: 507 g; 7th percentile Anatomic survey: Neuro: Ventricles are non-dilated at less than 10 mm. Cisterna magna is normal at 3-11 mm. Cerebellum is normal in size and morphology. Nuchal skin fold: Normal at less than 6 mm between 14-21 weeks gestational age. Face: Suboptimally visualized. Spine: Suboptimally visualized. Heart: 4-chambered heart is present, with normal ventricular outflow tracts. Diaphragm: Diaphragm is intact. Stomach: Left-sided stomach is present. Kidneys: No hydronephrosis. Normal is less than 5 mm in 2nd trimester, less than 7 mm in 3rd trimester. Cord: 3-vessel cord has orthotopic insertion. Bladder: Normal in size. Extremities: All 4 extremities identified. IMPRESSION: 1. Single living IUP redemonstrated and interval growth is less than expected with estimated weight at the 7th percentile. Follow-up growth scan is recommended. 2. face and spine suboptimally visualized; otherwise normal anatomy. We strive to produce accurate, complete, and clear reports of imaging services. To assist us in improving patient care, this report was composed using standard report templates and voice recognition software. Therefore, it may contain abnormal punctuation, insertions and/or omissions. Occasional wrong-word or sound-alike substitutions may occur. Though we review the report and make efforts to correct it, we do recommend that the report be read carefully in proper context to recognize any text inaccuracies. Dictated by: Homero JC Interpreted: Solitario Moses MD on 07/26/2021 at 11:11 Transcribed by: LEYLA on 07/26/2021 at 11:14 Approved by: Solitario Moses M.D. on 07/26/2021 at 14:39
== END ==
PROVIDERS: PCP Family Medicine; Referring Provider Specialist; Visit Provider Specialist
DX: Z36.89 Encounter for other specified antenatal screening (principal); Z3A.23 23 weeks gestation of pregnancy
CPT/HCPCS: 76811

== ENCOUNTER → 2021-08-23 13:17 | Outpatient (CLI) | payer OTHER, SELFPAY ==
[2021-08-23 14:57] LABS: Hematocrit 32.5 % (36-46); Hemoglobin 10.9 g/dL (12.0-16.0)
[2021-08-23 15:10] LABS: GTT (PREG) 1 Hour PP 50gm Dose 125 mg/dL (76-139)
== END ==
PROVIDERS: PCP Family Medicine; Referring Provider Specialist; Visit Provider Specialist
DX: Z34.02 Encounter for supervision of normal first pregnancy, second trimester (principal); Z3A.26 26 weeks gestation of pregnancy
CPT/HCPCS: 82950; 85014; 85018

== ENCOUNTER 2021-09-14 16:12 | Outpatient (CLI) | payer OTHER, SELFPAY ==
[2021-09-14 17:30] LABS: Add Manual Diff / Slide Review NO; Basophils Absolute Auto 100 /uL (0-100); Basophils Percent Auto 0.6 % (0-2); Eosinophils Absolute Auto 200 /uL (0-450); Eosinophils Percent Auto 1.6 % (2-4); Hematocrit 30.2 % (36-46); Hemoglobin 10.3 g/dL (12.0-16.0); Lymphocytes Absolute Auto 1300 /uL (1100-4500); Mean Corpuscular HGB Conc 34.2 % (30-36); Mean Corpuscular Hemoglobin 30.3 PG (26-34); Mean Corpuscular Volume 88.8 fL (80-100); Monocytes Absolute Auto 700 /uL (0-900); Monocytes Percent Auto 6.4 % (3-14); Neutrophils Absolute Auto 8500 /uL (1500-7000); Neutrophils Percent Auto 79.4 % (50-75); Platelet Count 240 X10^3/uL (150-400); Red Cell Distribution Width 14.6 % (11.6-14.8); White Blood Cell Count 10.7 X10^3/uL (4.5-11.0)
[2021-09-14 17:36] LABS: Appearance Urine UA CLEAR; Bilirubin Urine UA NEGATIVE (NEGATIVE); Color Urine UA YELLOW; Glucose Urine UA NEGATIVE (Negative); Ketones Urine UA NEGATIVE (NEGATIVE); Leukocyte Esterase Urine UA 1+ (NEGATIVE); Nitrite Urine UA NEGATIVE (Negative); Occult Blood Urine UA NEGATIVE (Negative); Protein Urine UA NEGATIVE (Negative); Urobilinogen Urine UA 0.2 E.U./dL (0.2)
[2021-09-14 17:57] LABS: Bacteria Urine Many (>30); Culture Indicated Urine Cult Not Indicated; RBC Urine 0-1/HPF (0-5/HPF); Squamous Epithelial Cell Urine 5-10 /HPF (0-5/HPF); WBC Urine 1-5/HPF (0-5/HPF)
--- NOTE | 2021-09-14 18:08 | PM.OBTRLD ---
Visit Information Visit Information Date of evaluation: 09/14/21 Primary OB Provider: Rosie Rudolph Reason for Evaluation: Yes pre-term labor [facility] Medical History Acne (~2010) ADHD (~2019) Asthma (~1999) Encounter for IUD removal (~02/2021) Lactose intolerance (~1996) Surgical History [place] teeth extracted (~2017) Family History Father Hypertension Hyperlipidemia Asthma Grandfather Hypertension History of heart disease Grandmother Hyperlipidemia Hypertension Grandfather History of heart disease Hypertension Asthma Glaucoma Pacemaker Grandmother Dementia Mother Acute ITP Social History marital status: number of children: 0 household members: spouse lives independently: Yes caregiver/support person: No housing: apartment pets and animals: Yes (3 cats: safe & aware.) education level: college (Some college. 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 ) daily servings fruits/ve-1 caffeine: Yes (1 cup coffee daily.) Type(s) of exercise: walking (Some hiking. ) and swimming (Every morning. ) frequency: daily duration: 30-45 minutes/day Review of Systems Review of Systems Narrative: Patient complained of tightening and discomfort this morning she began having feeling more like menstrual cramps. No vaginal bleeding. No leakage of fluid. Good movement. Now the patient has come in and laid down and her discomfort has resolved. Exam Narrative Exam Narrative: Patient with some mild right-sided uterine tenderness no firmness or tenderness to the left side. Objective Labs Result Diagrams: 09/14/21 17:21 Labs: Laboratory Results - last 24 hr 09/14/21 09/14/21 17:00 17:21 WBC 10.7 RBC 3.40 L Hgb 10.3 L Hct 30.2 L MCV 88.8 MCH 30.3 MCHC 34.2 RDW 14.6 Plt Count 240 Neut % (Auto) 79.4 H Lymph % (Auto) 12.0 L [place] % (Auto) 6.4 Eos % (Auto) 1.6 L Baso % (Auto) 0.6 Neut # (Auto) 8500 H Lymph # (Auto) 1300 [place] # (Auto) 700 Eos # (Auto) 200 Baso # (Auto) 100 Urine Color Yellow Urine Appearance Clear Urine pH 7.0 Ur Specific [place] 1.010 Urine Protein Negative Urine Glucose (UA) Negative Urine Ketones Negative Urine Occult Blood Negative Urine Nitrate Negative Urine Bilirubin Negative Urine Urobilinogen 0.2 Ur Leukocyte Esterase 1+ H Urine RBC 0-1/hpf Urine WBC 1-5/hpf Ur Squamous Epith Cells 5-10 /hpf H Urine Bacteria Many (>30) H Ur Culture Indicated? Cult not indicated Evaluation Evaluation Baseline heart rate: 130 Variability: Moderate (11-25) monitor accelerations: Present Monitor Decelerations: Absent Contraction Frequency (minutes): 10 Uterine Contraction Intensity: Mild Category of Tracing: Reactive Status: Category l Diagnosis, Plan/Disposition Final Diagnosis (1) False labor before 37 completed weeks of gestation: Status: Acute (2) 30 weeks gestation of : Status: Acute Plan/Disposition Plan: Patient was given a note to be at bedrest. Precautions reviewed. Keep her appointment on 09/21/2021 OB Disposition: home
== END 2021-09-14 18:18 | disposition home or self-care (01) ==
LOC: OB 09-15 09:45
PROVIDERS: PCP Family Medicine; Referring Provider Specialist; Visit Provider Specialist
DX: O47.03 False labor before 37 completed weeks of gestation, third trimester (principal); Z3A.30 30 weeks gestation of pregnancy
CPT/HCPCS: 36415; 59025; 59050; 81003; 81015; 85025; G0378; G0379

== ENCOUNTER → 2021-10-26 13:58 | Outpatient (CLI) | payer OTHER, SELFPAY ==
[2021-10-27 14:24] LABS: Strep Grp B PCR NEG for Grp B Strep
== END ==
PROVIDERS: PCP Family Medicine; Visit Provider Specialist
DX: Z34.03 Encounter for supervision of normal first pregnancy, third trimester (principal); Z3A.36 36 weeks gestation of pregnancy
CPT/HCPCS: 87653

== ENCOUNTER 2021-10-30 16:59 | Observation (INO) | payer OTHER, SELFPAY ==
--- NOTE | 2021-10-30 18:19 | DI.US.S_ITS ---
PROCEDURE: US OB LIMITED INDICATIONS: TRISTAN TECHNIQUE: Real-time scanning was performed of the fetus, with image documentation. Endovaginal scanning: Not performed COMPARISON: None. FINDINGS: A single living intrauterine gestation is present. Presentation: Cephalic. Placenta: Placental position is anterior, without previa. Amniotic fluid index: 16.3 cm, normal range is 5-24 cm. Single deepest vertical pocket is 5.6 cm. heart rate: 143 beats per minute. Maternal cervical canal: Not seen. IMPRESSION: Single live intrauterine gestation. Amniotic fluid index is 16.3 cm. Dictated by: Primo Dwyer M.D. on 10/30/2021 at 18:52 Approved by: Primo Dwyer M.D. on 10/30/2021 at 18:53
--- NOTE | 2021-10-30 19:04 | PM.OBTRLD ---
Visit Information Visit Information Date of evaluation: 10/30/21 Primary OB Provider: Rosie Rudolph On-call OB Provider: Lissa Norman Reason for Evaluation: Yes rule out labor Comments/Additional reasons for admission: 26 year old at 36+5 weeks coming in with regular contractions. She had a single episode of leaking yesterday but it did not continue. She has been sexually active in the last 12 hours. Baby is active. Denies bleeding. Continues have become more regular and pain. She had another episode of leaking while in the center. Vital Signs Vital Signs: Temperature 36.8 BP 120/73 P 96 PFSH Medical History Acne (~2010) ADHD (~2019) Asthma (~1999) Encounter for IUD removal (~02/2021) Lactose intolerance (~1996) Surgical History [place] teeth extracted (~2017) Family History Father Hypertension Hyperlipidemia Asthma Grandfather Hypertension History of heart disease Grandmother Hyperlipidemia Hypertension Grandfather History of heart disease Hypertension Asthma Glaucoma Pacemaker Grandmother Dementia Mother Acute ITP Social History marital status: number of children: 0 household members: spouse lives independently: Yes caregiver/support person: No housing: apartment pets and animals: Yes (3 cats: safe & aware.) education level: college (Some college. 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 ) daily servings fruits/ve-1 caffeine: Yes (1 cup coffee daily.) Type(s) of exercise: walking (Some hiking. ) and swimming (Every morning. ) frequency: daily duration: 30-45 minutes/day Evaluation Evaluation Baseline heart rate: 140 Variability: Moderate (11-25) monitor accelerations: Present Monitor Decelerations: Absent Contraction Frequency (minutes): 6 Uterine Contraction Intensity: Mild Category of Tracing: Reactive Cervical dilation (cm): 0 Cervical effacement (%): 50 station: -1 Comments: Speculum exam performed due to possible rupture of membranes, no pooling of fluid in vagina, physiologic discharge present Diagnosis, Plan/Disposition Plan/Disposition Plan: 26 year old at 36+5 weeks gestation concerned for labor and ROM. SVE FT/50/-1 and unchanged after an hour of monitoring and ctx 6-7 min apart. Amnisure was not completed due to recent intercourse however no pooling in vagina on speculum exam and TRISTAN 16, reassuring against ROM. Suspect discharge was semen. Return precautions reviewed with the patient. Follow up in clinic this week or sooner if needed. OB Disposition: home
== END 2021-10-30 19:40 | disposition home or self-care (01) ==
LOC: LABOR 17:00
PROVIDERS: Admitting Provider Specialist; PCP Family Medicine; Referring Provider Specialist; Visit Provider Specialist
DX: Z03.71 Encounter for suspected problem with amniotic cavity and membrane ruled out (principal); O47.03 False labor before 37 completed weeks of gestation, third trimester; Z3A.36 36 weeks gestation of pregnancy
CPT/HCPCS: 59025; 59050; 76815; G0378; G0379

== ENCOUNTER 2021-11-02 16:17 | Outpatient (CLI) | payer OTHER, SELFPAY ==
--- NOTE | 2021-11-02 17:09 | PM.OBTRLD ---
Visit Information Visit Information Date of evaluation: 11/02/21 Primary OB Provider: Rosie Rudolph Reason for Evaluation: Yes rule out labor [facility] Medical History Acne (~2010) ADHD (~2019) Asthma (~1999) Encounter for IUD removal (~02/2021) Lactose intolerance (~1996) Surgical History [place] teeth extracted (~2017) Family History Father Hypertension Hyperlipidemia Asthma Grandfather Hypertension History of heart disease Grandmother Hyperlipidemia Hypertension Grandfather History of heart disease Hypertension Asthma Glaucoma Pacemaker Grandmother Dementia Mother Acute ITP Social History marital status: number of children: 0 household members: spouse lives independently: Yes caregiver/support person: No housing: apartment pets and animals: Yes (3 cats: safe & aware.) education level: college (Some college. 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 ) daily servings fruits/ve-1 caffeine: Yes (1 cup coffee daily.) Type(s) of exercise: walking (Some hiking. ) and swimming (Every morning. ) frequency: daily duration: 30-45 minutes/day Evaluation Evaluation Baseline heart rate: 140 Variability: Moderate (11-25) monitor accelerations: Present Monitor Decelerations: Absent Contraction Frequency (minutes): 4 Uterine Contraction Intensity: Mild Category of Tracing: Reactive Status: Category l Cervical dilation (cm): 2 Cervical effacement (%): 80 station: -2 Diagnosis, Plan/Disposition Final Diagnosis (1) 37 weeks gestation of : Status: Acute (2) False labor at or after 37 completed weeks of gestation: Status: Acute Plan/Disposition Plan: Patient will be sent home. She declined Demerol IM. Return if contractions continue and worsen, rupture membranes or other concerns. OB Disposition: home
== END 2021-11-02 17:15 | disposition home or self-care (01) ==
LOC: OB 11-05 12:37
PROVIDERS: PCP Family Medicine; Referring Provider Specialist; Visit Provider Specialist
DX: O47.1 False labor at or after 37 completed weeks of gestation (principal); Z3A.37 37 weeks gestation of pregnancy
CPT/HCPCS: 59025; G0378; G0379

== ENCOUNTER 2021-11-04 09:42 | Observation (INO) | payer OTHER, SELFPAY ==
[2021-11-04] MEDS: MEPERIDINE 50 MG/ML INJ IM (10:52)
== END 2021-11-04 12:25 | disposition home or self-care (01) ==
PROVIDERS: Admitting Provider Specialist; PCP Family Medicine; Referring Provider Specialist; Visit Provider Specialist
DX: O75.82 Onset (spontaneous) of labor after 37 completed weeks of gestation but before 39 completed weeks gestation, with delivery by (planned) cesarean section (principal); Z3A.37 37 weeks gestation of pregnancy
CPT/HCPCS: 59025; 59050; 84112; 96372; G0378; G0379; J2175

== ENCOUNTER 2021-11-04 14:35 | Inpatient (IN) | payer OTHER, SELFPAY ==
[2021-11-04 16:12] LABS: COVID19 -Nasal RAPID Negative (Negative)
--- NOTE | 2021-11-04 16:23 | P.HPOB_ITS ---
OB HPI Date/Time Date of admission: 11/04/21 Date Patient Seen: 11/04/21 Time Patient Seen: 16:24 History of Present Condition Chief complaint: LABOR : 1 Para: 0 Estimated Date of Delivery: 11/22/21 Estimated Gestational Age (weeks): 37 Narrative: Radha Peña is a 26 year old female admitted in active labor with spontaneous rupture membranes History of Present care: good care, initiated at week # (8), number of visits (10) and pounds weight gain (33) Dating criteria: LMP confirmed by 1st trimester US Ultrasounds: normal mid trimester US Obstetrical complications: none Medical complications: none Preadmission Labs Blood type: O (+) positive -: Antibody screen: negative, GBS status: negative, HBsAG: negative, HIV: negative and RPR/VDLR: negative -: Chlamydia screen: not detected and Gonorrhea screen: not detected -: Rubella: immune and Varicella: not immune HCAB: negative Quad screen: Normal 1 hr GTT: 125 Evaluation Evaluation Baseline heart rate: 130 Variability: Moderate (11-25) monitor accelerations: Present Monitor Decelerations: Absent Contraction Frequency (minutes): 5 Uterine Contraction Intensity: Moderate Category of Tracing: Reactive Status: Category l Dilation (cm): 2 Effacement (%): 80 station: -3 Position of cervix: posterior Consistency: soft PFSH Medical History Acne (~2010) ADHD (~2019) Asthma (~1999) Encounter for IUD removal (~02/2021) Lactose intolerance (~1996) Surgical History [place] teeth extracted (~2017) Family History Father Hypertension Hyperlipidemia Asthma Grandfather Hypertension History of heart disease Grandmother Hyperlipidemia Hypertension Grandfather History of heart disease Hypertension Asthma Glaucoma Pacemaker Grandmother Dementia Mother Acute ITP Social History marital status: number of children: 0 household members: spouse lives independently: Yes caregiver/support person: No housing: apartment pets and animals: Yes (3 cats: safe & aware.) education level: college (Some college. 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 ) daily servings fruits/ve-1 caffeine: Yes (1 cup coffee daily.) Type(s) of exercise: walking (Some hiking. ) and swimming (Every morning. ) frequency: daily duration: 30-45 minutes/day Meds Home Medications and Allergies Home Medications Medication Instructions Recorded Confirmed Type ondansetron 4 mg disintegrating 4 mg PO Q8H PRN #10 tab 04/02/21 11/02/21 Rx tablet prenat.vits,kedar,hly-eqot-yfzxo 1 tab PO DAILY 04/12/21 11/02/21 History sertraline 25 mg tablet (Zoloft) 25 mg PO DAILY 04/12/21 11/02/21 History omeprazole 40 mg capsule,delayed 40 mg PO DAILY #30 cap 09/08/21 11/02/21 Rx release Allergies Allergy/AdvReac Type Severity Reaction Status Date / Time lactose Allergy Severe GI upset & Verified 09/21/21 13:57 diarrhea shellfish derived Allergy Mild Hives Verified 09/21/21 13:57 Review of Systems Review of Systems Narrative: Patient has been in and out of Labor Unit for this last week concerned of possible leakage of fluid and labor. She was evaluated earlier today and then returned with obvious rupture membranes. Good movement. No headaches, scotomata, epigastric pain. OB Exam Narrative Exam Narrative: Temperature 36.8? blood pressure 110/63, pulse 75 HEENT exam within normal limits. Lungs are clear to auscultation percussion. Heart is regular rate and rhythm no S3-S4 murmurs. Abdomen is gravid. Fetus is vertex. Extremities with trace edema and nontender. Objective Labs Labs: Laboratory Results - last 24 hr 11/04/21 15:20 SARS-CoV-2 (PCR) Negative Assessment and Plan Assessment and Plan Assessment and Plan narrative: 37 and half weeks gestation with spontaneous rupture membranes in early labor. Anticipate vaginal delivery. Pain medicine as needed.
[2021-11-04 17:00] VITALS: BP 114/74
[2021-11-04] MEDS: LACTATED RINGERS 1,000 ML 100 ML IV ×2 (18:22→19:11)
[2021-11-04] MEDS: fentaNYL 100 MCG/2 ML INJ IV (18:36)
[2021-11-04 23:40] LABS: Add Manual Diff / Slide Review NO; Basophils Absolute Auto 0 /uL (0-100); Basophils Percent Auto 0.1 % (0-2); Eosinophils Absolute Auto 0 /uL (0-450); Eosinophils Percent Auto 0.1 % (2-4); Hematocrit 33.3 % (36-46); Hemoglobin 11.1 g/dL (12.0-16.0); Lymphocytes Absolute Auto 800 /uL (1100-4500); Lymphocytes Percent Auto 6.9 % (25-40); Mean Corpuscular HGB Conc 33.4 % (30-36); Mean Corpuscular Hemoglobin 29.5 PG (26-34); Mean Corpuscular Volume 88.4 fL (80-100); Monocytes Absolute Auto 700 /uL (0-900); Monocytes Percent Auto 5.7 % (3-14); Neutrophils Absolute Auto 10000 /uL (1500-7000); Neutrophils Percent Auto 87.2 % (50-75); Platelet Count 217 X10^3/uL (150-400); Red Blood Cell Count 3.77 X10^6/uL (4.0-5.2); Red Cell Distribution Width 14.3 % (11.6-14.8); White Blood Cell Count 11.5 X10^3/uL (4.5-11.0)
[2021-11-05] MEDS: LACTATED RINGERS 1,000 ML 100 ML IV ×2 (01:35→06:55)
[2021-11-05] MEDS: FENT 2MCG/ML BUPIV 0.125% EPI 200 MCG/100 ML PLAST..BAG 50 MCG EPIDURAL (03:12)
--- NOTE | 2021-11-05 08:46 | PM.OBPRVD ---
Labor & Delivery Delivery date: 11/05/21 Intrapartal Events: None Cervical ripening method: none Induction method: none Delivery monitor: external FHT and external uterine Route of delivery: L&D Laceration Description: Perineal - 1st Degree Delivery repair: chromic (3 0) Estimated blood loss (mL): 200 Anesthesia Type: Epidural Narrative: Patient arrived in Labor and delivery in active labor with spontaneous rupture membranes. She received an epidural catheter for pain control. heart tones category 1 to category 2 throughout labor. The viable female was delivered over an intact perineum. A double nuchal cord was released. The was placed on the maternal abdomen. After the cord stopped pulsating the cord was clamped, cut, and cord bloods obtained. The placenta delivered spontaneously, intact, with 3 vessels. There were no cervical or vaginal tears. A first-degree perineal tear was repaired with 3 0 chromic suture. Baby 1: gender: Female Presentation: vertex Position: Left Occiput Anterior Placenta delivery description: Spontaneous Cord Vessel Description: 3 Vessels and Nuchal Cord (X2) score (1 min): 9 score (5 min): 9 Plan for aftercare: Routine care
[2021-11-05 14:15] VITALS: TEMP 36
[2021-11-05] MEDS: IBUPROFEN 600 MG TABLET PO ×2 (14:15→21:20)
[2021-11-05] MEDS: SERTRALINE 50 MG TABLET 100 MG PO (21:18)
[2021-11-06 05:33] LABS: Add Manual Diff / Slide Review NO; Basophils Absolute Auto 0 /uL (0-100); Basophils Percent Auto 0.4 % (0-2); Eosinophils Absolute Auto 100 /uL (0-450); Hematocrit 30.5 % (36-46); Hemoglobin 10.2 g/dL (12.0-16.0); Lymphocytes Absolute Auto 1700 /uL (1100-4500); Lymphocytes Percent Auto 12.9 % (25-40); Mean Corpuscular HGB Conc 33.4 % (30-36); Mean Corpuscular Hemoglobin 29.6 PG (26-34); Mean Corpuscular Volume 88.8 fL (80-100); Monocytes Absolute Auto 900 /uL (0-900); Monocytes Percent Auto 7.1 % (3-14); Neutrophils Absolute Auto 10400 /uL (1500-7000); Neutrophils Percent Auto 78.6 % (50-75); Platelet Count 206 X10^3/uL (150-400); Red Blood Cell Count 3.44 X10^6/uL (4.0-5.2); Red Cell Distribution Width 14.7 % (11.6-14.8); White Blood Cell Count 13.2 X10^3/uL (4.5-11.0)
[2021-11-06] MEDS: ACETAMINOPHEN 325 MG TABLET 650 MG PO ×2 (07:33→14:08)
[2021-11-06] MEDS: IBUPROFEN 600 MG TABLET PO ×2 (07:34→14:09)
--- NOTE | 2021-11-06 09:06 | PM.OBDS.1 ---
Discharge Providers Provider Date of admission: 11/04/21 14:35 Discharge Date: 11/06/21 Primary care physician: Juan Aguillon MD Consults: 11/04/21 15:02 Consult to Anesthesiology Urgent Comment: Consulting Provider: Anesthesiologist Reason for consultation: Epidural Has provider been notified: No 11/06/21 08:37 Consult to Simulation Developer Routine Comment: Discharge provider: Rosie Rudolph MD Summary Hospital Course Date Patient Seen: 11/06/21 Time Patient Seen: 09:06 Diagnoses: 37 weeks spontaneous vaginal delivery Hospital Course: Patient arrived on Labor and delivery with spontaneous rupture membranes in active labor. She underwent an epidural catheter for pain control. She had a spontaneous vaginal delivery with a repair of a first-degree tear. She denies headaches, scotomata, epigastric pain. She is urinating and ambulating well. Pain is minimal. Mild lochia. Peripartum Data Delivery Method: Natural Vaginal Laceration Description: Perineal - 1st Degree Procedures: Epidural catheter, spontaneous vaginal delivery, repair of first-degree tear complications: none 1: Gender: Female Disposition of : home Discharge Diagnosis (1) 37 weeks gestation of : Status: Acute (2) Vaginal delivery: Status: Acute Problem Details: First-degree perineal tear Status at Discharge Cognitive/behavioral status at discharge: oriented Functional status at discharge: independent ambulation Overall status at discharge: patient is progressing back to baseline Time Spent with Patient Time attestation: Total time spent providing and/or coordinating discharge services: Time spent: Less than 30 minutes Objective Labs Result Diagrams: 11/06/21 05:13 Labs: Laboratory Results - last 24 hr 11/06/21 05:13 WBC 13.2 H RBC 3.44 L Hgb 10.2 L Hct 30.5 L MCV 88.8 MCH 29.6 MCHC 33.4 RDW 14.7 Plt Count 206 Neut % (Auto) 78.6 H Lymph % (Auto) 12.9 L [place] % (Auto) 7.1 Eos % (Auto) 1.0 L Baso % (Auto) 0.4 Neut # (Auto) 99527 H Lymph # (Auto) 1700 [place] # (Auto) 900 Eos # (Auto) 100 Baso # (Auto) 0 Exam Vital Signs (past 8 hours): Blood pressure 119/71, pulse of 76, temperature 97.8? Narrative Exam Narrative: Patient's abdomen is soft, nontender. Uterus is firm, nontender at U. lochia. Extremities without edema and nontender. Patient's blood type is O positive, she is rubella immune, she received Tdap in the 3rd trimester. Discharge Plan Discharge Plan Patient Disposition: Home Discharge orders & Medications Prescriptions: Continued omeprazole 40 mg capsule,delayed release(DR/EC) 40 mg PO DAILY Qty: 30 2RF prenat.vits,kedar,wrf-pncb-rhvzw Tablet 1 tab PO DAILY 0RF sertraline [Zoloft] 25 mg tablet 25 mg PO DAILY 0RF ondansetron 4 mg tablet,disintegrating 4 mg PO Q8H PRN (Reason: nausea and vomiting) Qty: 10 0RF Follow up/Referrals: Rosie Rudolph MD [Physician] - 1 Month Juan Aguillon MD [Primary Care Provider] - Diet/Activity/Treatments Diet: Regular Activity: Nothing in vagina for 6 weeks Skin/Wound/Dressing Care Report to your healthcare provider any signs of infection, such as:: chills, fever and increased pain Discharge Data Primary Care Provider: Juan Aguillon
[2021-11-06] MEDS: LANOLIN OINT 7 GM 1 APPLIC TOP (14:10)
== END 2021-11-06 17:00 | disposition home or self-care (01) | DRG 807 ==
PROVIDERS: Admitting Provider Specialist; PCP Family Medicine; Referring Provider Specialist; Visit Provider Specialist
DX: O69.81X0 Labor and delivery complicated by cord around neck, without compression, not applicable or unspecified (principal); Z37.0 Single live birth; Z3A.37 37 weeks gestation of pregnancy; O70.0 First degree perineal laceration during delivery
CPT/HCPCS: 01967; 36415; 59050; 59400; 84112; 85025; 86850; 86900; 86901; 87635; 96372; C9803; G0378; G0379; J2175; J3010

== ENCOUNTER 2022-05-08 08:45 | Emergency (ER) | payer OTHER, SELFPAY ==
[2022-05-08 09:07] VITALS: BP 119/80; PULSE 75; RESP 16; TEMP 35.8; O2SAT 97; BMI 32.9
[2022-05-08 12:32] VITALS: BP 120/70; PULSE 72; RESP 14; O2SAT 99
--- NOTE | 2022-05-08 13:19 | ED.PSYCH ---
HPI - Psych General Chief Complaint: Psychiatric Symptoms Stated Complaint: Panic attack told by chain of command to come in Time Seen by Provider: 05/08/22 12:56 History of Present Illness HPI Narrative: Patient is a 26-year-old female history of anxiety presenting today with probable panic attack. She is 6 months. She is active . She says she was recently switched over to a different job. She says she is extremely tired not able to function and felt like the world was collapsing today. She states that she works 7 days a week. 6:00 a.m. to 3:00 p.m. or sometimes 5:30 p.m. 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 Along with take care of an infant. She is overall extremely tired. She has no thoughts of harming herself or anyone else. He has been trying to find a therapist but has been unable to do so. Related Data Home Medications Medication Instructions Recorded Confirmed prenat.vits,kedar,vrc-mgtu-uisak 1 tab PO DAILY 04/12/21 12/27/21 sertraline 25 mg tablet (Zoloft) 25 mg PO DAILY 04/12/21 12/27/21 Allergies Allergy/AdvReac Type Severity Reaction Status Date / Time lactose Allergy Severe GI upset & Verified 12/27/21 08:11 diarrhea shellfish derived Allergy Mild Hives Verified 12/27/21 08:11 Review of Systems Review of Systems Narrative: GENERAL: Denies chills, fatigue, malaise, fever, sweats, travel HEENT: Denies sinus pain, ear pain, sore throat, difficulty swallowing, neck pain RESPIRATORY: Denies dyspnea, cough, wheezing, hemoptysis, sputum. CARDIOVASCULAR: Denies chest pain, palpitations, orthopnea, edema GASTROINTESTINAL: Denies nausea, vomiting, abdominal pain, diarrhea, constipation, melena. : Denies dysuria, frequency, incontinence, hematuria, urinary retention, flank pain. MUSCULOSKELETAL: Denies weakness, joint pain, or bony pain SKIN: No rash, no erythema, no pruritus NEUROLOGIC: Denies weakness, dizziness, headache, numbness, change in speech, confusion PSYCHIATRIC: No concerning psychosocial issues. 12 point review of systems is negative except for those stated above and HPI Psychiatric Psychiatric: Reports as per HPI and Reports anxiety Patient History Medical History Acne (~2010) ADHD (~2019) Asthma (~1999) Lactose intolerance (~1996) Vaginal delivery (~11/05/21) Surgical History [place] teeth extracted (~2017) Family History Father Hypertension Hyperlipidemia Asthma Grandfather Hypertension History of heart disease Grandmother Hyperlipidemia Hypertension Grandfather History of heart disease Hypertension Asthma Glaucoma Pacemaker Grandmother Dementia Mother Acute ITP Social History marital status: number of children: 0 household members: spouse lives independently: Yes caregiver/support person: No housing: apartment pets and animals: Yes (3 cats: safe & aware.) education level: college (Some college. 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 ) daily servings fruits/ve-1 caffeine: Yes (1 cup coffee daily.) Type(s) of exercise: walking (Some hiking. ) and swimming (Every morning. ) frequency: daily duration: 30-45 minutes/day Smoking Status: Former smoker alcohol intake frequency: 0-2 drinks per day Substance Use Type: does not use Exam Initial Vital Signs Initial Vital Signs: Vital Signs Temperature 96.5 F L 05/08/22 09:07 Pulse Rate 75 05/08/22 09:07 Respiratory Rate 16 05/08/22 09:07 Blood Pressure 119/80 05/08/22 09:07 Pulse Oximetry 97 05/08/22 09:07 Oxygen Delivery Method 05/08/22 09:07 GENERAL: Alert tearful 26 female and in no acute distress. HEENT: Head atraumatic,EOMI, pupils reactive, face symmetric, moist mucous membranes CARDIOVASCULAR: Regular rate and rhythm without murmurs, rubs or gallops. RESPIRATORY: Breath sounds equal bilaterally, no wheezes rales or rhonchi. EXTREMITIES: Normal range of motion, no clubbing or edema. Neurovascularly intact NEUROLOGICAL: Alert and oriented x4. SKIN: Warm, dry, no laceration, no petechiae, no rashes or lesions. Course Orders Ordered: ED Orders 05/08/22 10:43 Consult to APPLIANCE SERVICE REPRESENTATIVE - Correspondence Specialist Stat Vital Signs Vital signs: Vital Signs - 8 hr 05/08/22 12:32 Pulse Rate 72 Respiratory Rate 14 Blood Pressure 120/70 Pulse Oximetry 99 MDM - Psych MDM Narrative Medical decision making narrative: Patient presents today with anxiety attack. She is clearly sleep deprived over worked and a new mother. She is trying to find hist. Social Work did go in and evaluate her. She is not suicidal not homicidal. She just is overwhelmed. At this time we agree to give her a week off so that she can rest, but hopefully will help her at least temporarily. Discharge Plan Departure Patient Disposition: Home Clinical Impression: Anxiety Instructions: DI for Anxiety -- Adult Activity Restrictions/Additional Instructions: *You have been diagnosed with anxiety reaction and lack of sleep *What to do: Strongly recommended that you try and get some sleep. I encourage you to continue to try to be transferred *Continue to take medications as directed *Follow up with your primary care provider in 2-3 days or call [phone] *Return to ER if you should have increased anxiety thoughts of harming self or others or any new, worsening or concerning symptoms Prescriptions: No Action prenat.vits,kedar,vgv-jpjd-grrby Tablet 1 tab PO DAILY sertraline [Zoloft] 25 mg tablet 25 mg PO DAILY Referrals: Juan Aguillon MD [Primary Care Provider] - Stand Alone Forms: Work Release Note Visit Report Forms: Patient Portal/API
--- NOTE | 2022-05-08 15:43 | CM.SWNOTE ---
INSPECTOR Assessment INSPECTOR - Mold Maker Assessment INSPECTOR - Mold Maker Assessment Start: 05/08/22 15:04 Freq: Status: Discharge Protocol: Document 05/08/22 15:04 LN (Rec: 05/08/22 15:43 LN [id number]) INSPECTOR/Mold Maker Assessment Time Spent with Patient Start date 05/08/22 Visit Start Time 14:05 End date 05/08/22 Visit End Time 14:35 Total time Care Management spent on 30 minutes patient visit-in minutes Mental Health Screening Include Onset, Duration, Intensity Presenting Problem Patient presents to ED with after experiencing increase in anxiety and panic attacks in the last several months. Precipitating Event(s) Patient had her baby 6 months ago and has been experiencing post depression and anxiety. Patient is in the [place] and her job has been very demanding since returning to work after maternity leave. Patient endorses that she has been off of her Adderall medication since she started and is trying to get back on that medication. Patient endorses being overwhelmed managing work demands, being a mother and managing self care. Patient Strengths Patient has good support from , has current psychiatrist and is actiely seeking therapist that fits her needs. Current Behavioral Health Provider(s) Patient has psychiatrist via Include Facility, Provider, Ph. # [facility] and plans to schedule upcoming appt soon. Psych. Hx Mental Health and Chemical Patient has hx of Anxiety and Dependency ADHD. Patient has rx for Zoloft and was prescribed Adderall prior to . Patient denies substance use, 0-2 ETOH drinks per day. Family Hx of Behavioral Abuse None reported Psychiatric Hospitalizations (date(s)/ no hx. location) Psychosocial information & Support Patient is 26 y/o female who Systems resides in [place] with and daughter. Patient endorses her as her main support. School/Work Active [employer] Concerns Legal Matters - Outstanding Issues None reported Mental Status Orientation (Person/Place/Time) A/Ox3 Stated Mood I feel like I've been rolling a rock uphill Affect (Congruent with Mood?) euthymic, tearful at times, congruent with mood, full range Thought Content - Specify/Describe None reported Obsessions, Delusions, Hallucinations Thought Processes (Rckdfsg-Miovykfz-Osbt coherent Uumpgbyf-Weyakyvq-Egsmroneaz- Shjsqfzjpeaism-Dmebidd-Gjgthgpvftsz- Thought Blocking) Speech (Gdtdmw-Yssg-Keoinli-Rapid-Soft- normal/soft Loud-Pressured) Motor (Qfyjxr-Jakzycfrv-Ordz-Other) normal Insight (Arlm-Ljrp-Xnzu/Limited) good/fair Judgement (Zkmb-Lbot-Ktnr/Limited) good/fair Impulse Control (Adequate-Impaired) adequate Memory (Mtjjpreqf-Yobjcq-Jwkepo, intact Impaired-Intact) Concentration (Intact-Impaired) intact Attention (Intact-Impaired) intact Behavior (Appropriate-Inappropriate) appropriate Additional Comment Patient presents as calm, communicative and cooperative. Risk Assessment Suicidal Ideation (Plan) No Homicidal Ideation (Plan) No Intervention Intervention INSPECTOR enters room, present in room is patient's and patient provides consent for to be present. Patient endorses increase in anxiety, feeling overwhelmed and recently had a panic attack. Patient attributes some of this to sleeping in or not getting enough sleep and always feeling like she didn't get enough sleep. Patient endorses concern for being on autopilot and going through the motions. Patient endorses concern for feeling like she is unraveling and trying to roll a rock up hill. Patient endorses she has a psychiatrist and has been trying out therapists but did not feel like they understand her situation. Patient endorses she has a preference for therapist with an expertise with post . Patient states in the past it has been helpful to attend mom groups online but she has not had time due to her work schedule. INSPECTOR discusses giving time for self and taking time in between work and picking up daughter from daycare. INSPECTOR discusses square breathing and grounding techniques for anxiety. Patient denies SI and HI. Patient endorses hopefulness for the future and goals for the future after the [employer]. INSPECTOR provides patient with a list of crisis contacts and list of MH providers that accept her insurance and specialize in . It is the opinion of this INSPECTOR that patient is safe to d/c to home. INSPECTOR reviews the above with ED provider Dr. Couch who indicates agreement and understanding. Plan RA Plan Patient to d/c to home with upon medical clearance . Patient to reach out to psychiatrist for f/u appt. Patient to continue to seek therapist. ED provider to provide patient with medical note for time off work. BHUPINDER Cavazos
== END 2022-05-08 15:17 | disposition home or self-care (01) ==
PROVIDERS: Emergency Provider Emergency Medicine; PCP Family Medicine
DX: F41.9 Anxiety disorder, unspecified (principal)
CPT/HCPCS: 99282; 99283